=== PATIENT | male | born 1955 | race Caucasian/White ===

== ENCOUNTER → 2023-06-30 10:19 | Outpatient (REF) | payer MEDICARE, OTHER, SELFPAY | LOC: DHCBC MAIN 10:19 | PROVIDERS: ATTENDING PHYSICIAN Internal Medicine; FAMILY PHYSICIAN Family Medicine | DX: R60.0 Localized edema (principal) | CPT/HCPCS: 93306 ==

== ENCOUNTER → 2023-11-11 06:28 | Day surgery (SDC) | payer MEDICARE, OTHER, SELFPAY | LOC: GI 06:28 | PROVIDERS: ATTENDING PHYSICIAN Internal Medicine | DX: Z12.11 Encounter for screening for malignant neoplasm of colon (principal); D12.3 Benign neoplasm of transverse colon; D12.7 Benign neoplasm of rectosigmoid junction; K63.5 Polyp of colon; Z86.010 Personal history of colon polyps | CPT/HCPCS: 45385; 45380; 88305 ==

== ENCOUNTER 2024-10-21 08:39 | Emergency (ER) | payer MEDICARE, OTHER, SELFPAY ==
[2024-10-21 08:44] VITALS: BP 167/109
--- NOTE | 2024-10-21 09:17 | ED.GENMED ---
History of Present Illness
General
Chief Complaint: Cardiac Symptoms
Source: patient
Exam Limitations: none
Time Seen by Provider: 10/21/24 09:16
Nursing documentation reviewed up to this point in time: agreed with
History of Present Illness
History of Present Illness:
Patient is a 69-year-old male who presents the emergency department for evaluation of heart palpitations which began this morning. Patient states he woke up around 6 AM and felt that his heart was beating irregularly. He states at that time he had
some mild lightheadedness. He denies any shortness of breath, chest pain, dizziness or diaphoresis. However�by my assessment�patient states his symptoms have resolved.
Patient has remote history of atrial fibrillation and takes metoprolol 25 mg daily. He has not had any known episodes of A-fib since he was in his 40s.
In the past�patient is always spontaneously converted back to normal sinus rhythm. He has never been cardioverted.
He follows with Dr. Harden.
Review of Systems
Review of Systems
Allergies reviewed?: Yes
All Other Systems: ROS reviewed and negative except as documented in HPI and ROS
Phy Exam
Physical Exam
Physical Exam:
Vitals: Hypertensive, tachycardic. Afebrile
General: Patient is well appearing, no acute distress. Nontoxic appearing
Skin: Warm and dry, no rashes or lesions
Head: Normocephalic, atraumatic
Eyes: Sclera nonicteric.
Throat: Protecting airway
Neck: Normal ROM, no cervical spine tenderness, no meningismus. No JVD
Cardiac: Tachycardic, irregularly irregular rhythm, no murmurs.
Pulm: Normal respiratory effort, no wheezes, rales, rhonchi heard on exam
Abdomen: No abdominal tenderness.
Extremities: 1+ edema right lower extremity. 2+ palpable DP pulses bilaterally. Negative Homans' sign bilaterally
Neuro: AAOx3. Grossly intact.
Psychiatric: Normal affect.
Scores
[id number] Score for Afib Stroke Risk
Age in Years (65=0, 65-74=1, >/=75=2): 65-74
Sex (Female=+1): Male
Congestive Heart Failure History (Yes=+1): No
Hypertension History (Yes=+1): Yes
Stroke/TIA/Thromboembolism History (Yes=+2): No
Vascular Disease History (Yes=+1): No
Diabetes Mellitus (Yes=+1): No
Score: 2
Anticoagulation Recommendations: Recommend anticoagulation (as validated in nonvalvular fib)
Course
Orders/Labs/Results
Orders:
Orders
10/21/24 08:40
Electrocardiogram (*1) Urgent
Reason for Study: Palpitations
EKG- Treatment ONCE
10/21/24 09:26
Diltiazem HCl [Cardizem] 5 mg IV NOW STA
10/21/24 09:31
0.9% Sodium Chloride 500 ml [Nss] 500 ml IV BOLUS
10/21/24 09:47
Complete Blood Count/With Diff Urgent
Comprehensive Metabolic Panel Urgent
TSH Reflex To Free T4 Urgent
10/21/24 10:00
Diltiazem 125 mg/125 ml Nss [Cardizem] 125 mg in 125 ml IV PER PROTOCOL
Initial dose in mg/hr, then titrate:: 5
Titrate to keep:: Heart rate 80-100 bpm
Titrate by mg/hr:: 5 mg/hr
Frequency of titrations (minutes):: 15
Maximum dose in mg/hr:: 15
10/21/24 11:45
Apixaban [Eliquis] 5 mg .ROUTE .STK-MED ONE
10/21/24 11:47
Electrocardiogram (*1) Urgent
Reason for Study: Palpitations
EKG- Treatment ONCE
Apixaban [Eliquis] 5 mg PO NOW STA
10/21/24 11:49
EKG- Treatment ONCE
10/21/24 12:00
Apixaban [Eliquis] 5 mg PO BID
Abnormal Lab Results
10/21/24
09:47
Absolute Lymphs (auto) 1.0 L 10^3/uL
(1.2-3.4)
Absolute Monos (auto) 0.7 H 10^3/uL
(0.1-0.6)
Lymphocytes % 16.2 L %
(20.5-51.1)
Monocytes % 11.8 H %
(1.7-9.3)
Glucose 102 H mg/dl
(70-99)
10/21/24 09:47
10/21/24 09:47
Vital Signs
Initial and Last Documented VS:
Initial Vital Signs
Temp Pulse Resp BP Pulse Ox
97.8 F 83 16 167/109 98
10/21/24 08:44 10/21/24 08:44 10/21/24 08:44 10/21/24 08:44 10/21/24 08:44
Last Documented Vital Signs
Temp Pulse Resp BP Pulse Ox
97.8 F 61 15 148/84 94
10/21/24 08:44 10/21/24 11:15 10/21/24 11:15 10/21/24 10:27 10/21/24 11:15
MDM/Problems Addressed
Differential Diagnosis Includes:
Not limited to: Cardiac arrhythmia, acute dehydration, viral illness, electrolyte abnormality,
MDM/Problems Addressed:
69-year-old male with remote history of A-fib presenting with heart palpitations and mild lightheadedness this morning, found to be in atrial fibrillation on arrival to ED. Symptoms essentially resolved by my evaluation. He denies chest pain.
Patient hypertensive on arrival, otherwise stable vital signs. Physical exam as above. Patient well-appearing, in no apparent distress. During examination patient appears in atrial fibrillation with rate ranging from upper 80s to low 100s. Lungs
clear. Otherwise exam unremarkable.
Patient is asymptomatic at this time however remains in atrial fibrillation. Patient believes symptoms started around 6 AM this morning however given he is asymptomatic now it is unsure if he would have realized the initial onset of A-fib. He is
not currently anticoagulated and there would be concern for cardioembolic event if cardioverted today. Will attempt rate/rhythm control with Cardizem bolus. Will discuss with cardiology.
Update: Rate has remained controlled in 80s/90s however he remains in A-fib. He is asymptomatic. Will start Cardizem drip. After discussion with cardiology�given he is asymptomatic and rate controlled�no indication for emergent PARVEEN/cardioversion
today. Will continue to attempt conversion with Cardizem and plan for outpatient cardiology follow-up. Labs without acute findings.
Update: Patient did convert to normal sinus rhythm while in emergency department. EKG obtained which confirms sinus rhythm at 60 bpm. Patient remains asymptomatic. Discussed with cardiology�plan will be to start Eliquis and increase metoprolol to
50 mg. He will follow-up with cardiology outpatient. Patient given initial dose of Eliquis in emergency department and prescription sent for remainder of prescription. Very strict return precautions discussed. Patient and patient's
comfortable with plan.
Chronic conditions affecting care:
Atrial fibrillation
Acute Exacerbation and/or Progression of Chronic Illness:
paroxysmal atrial fibrillation
*Pulse Oximetry
SaO2: 98
Oxygen Mode of Delivery: Room air
Patient hypoxic: no
*EKG
Interpreted by ED Provider?: Yes
EKG Intrepretation Date: 10/21/24
Interpretation: abnormal
Comparison EKG: changes noted
Heart Rate: 106
Rate: tachycardiac
Rhythm: a-fib
[place]: normal axis
Interval: normal QT interval
QRS Pattern: normal QRS
Ischemia: no ischemia
*Ins[employer] Interpretation
Rate: normal
Interpretation: abnormal
Heart Rate: 94
Rhythm: a-fib
*Critical Care Note
Total Time (30-74mins, 75-104mins- exclusive of procedures): Not Applicable
Patient Management
Discussion with other providers: Payroll Representative (Case discussed with cardiology)
ED Attending Note
-
Portions of this chart may have been created with voice recognition software.� Occasional wrong word or��sound alike� substitutions may have occurred due to the inherent limitations of voice recognition software.
Discharge Plan
Departure
Patient Disposition: Home (Routine Discharge)
Date of Disposition: 10/21/24
Time of Disposition: 11:33
Patient with high blood pressure during this ER visit?: Yes
Discharge Problem:
Paroxysmal atrial fibrillation
Instructions: How to take anticoagulants safely, Atrial fibrillation - Discharge instructions, BLOOD PRESSURE
Prescriptions:
New
metoprolol succinate 50 mg tablet extended release 24 hr
50 mg PO DAILY Qty: 30 0RF
Eliquis 5 mg tablet
5 mg PO BID Qty: 60 0RF
No Action
red yeast rice 600 MG tablet
600 mg PO DAILY
Vitamin D
1,000 units PO DAILY
sulfamethoxazole-trimethoprim 1 TABLET tablet
1 tab PO DAILY Qty: 12 0RF
naproxen 500 MG tablet,delayed release (DR/EC)
500 mg PO BIDPRN PRN (Reason: pain) Qty: 60 0RF
hydrocodone-acetaminophen [Vicodin] 1 EACH tablet
1 ea PO Q4HPRN PRN (Reason: severe pain) Qty: 30 0RF
Referrals:
Harvey Harden MD [Active, Cardiology] - Next open appointment
UNKNOWN - PT NOT,INTERVIEWE [Unknown Provider]
Activity Restrictions/Additional Instructions:
RETURN TO THE EMERGENCY DEPARTMENT WITH ANY PERSISTENTLY ELEVATED HEART RATE, CHEST PAIN, SHORTNESS OF BREATH/DIFFICULTY BREATHING, LIGHTHEADEDNESS OR DIZZINESS, ANY TRAUMATIC INJURY OR BLEEDING AT HOME, OR ANY OTHER CONCERNS
- As discussed�your heart rhythm converted to normal sinus rhythm while in the emergency department.
- As discussed with cardiology�we will increase your metoprolol to 50 mg once a day and start a blood thinner, Eliquis -this should be taken twice a day. Please monitor your heart rate at home.
- Now that you are on a blood thinner�please be very cautious with any trauma or head injury and return to the emergency department. You should avoid NSAIDs including Motrin, Aleve, Advil, naproxen, etc. Take Tylenol as needed for pain.
- Follow-up with cardiology for further evaluation/management to ensure that symptoms are improving
Monitor your symptoms closely and return to the emergency department with any acute worsening/new symptoms or any other concerns
Interventions
Interventions:
*Risk Screen - Suicide Last Done: 10/21/24 08:44
*General Assessment Last Done: 10/21/24 11:40
*Neglect/Abuse Screening Last Done: 10/21/24 08:44
*ED- Fall Risk Assessment Last Done: 10/21/24 11:40
*Nursing Disposition Last Done: 10/21/24 11:40
ED- Pulmonary Assessment Last Done: 10/21/24 10:00
ED- Cardiac Assessment Last Done: 10/21/24 10:00
Discharge Date and Time
Discharge Date/Time: 10/21/24 11:46
Print Language: [place]
[2024-10-21 09:24] VITALS: BP 152/119
[2024-10-21] MEDS: NSS 500 IV (09:43)
[2024-10-21] MEDS: CARDIZEM 5 MG IV (09:43)
[2024-10-21 09:57] LABS: Hematocrit 45.2 % (39.0-52.0); Hemoglobin 15.2 g/dL (13.0-18.0); Mean Corp Hgb Conc. 33.6 g/dL (33.0-37.0); Mean Corpuscular Volume 83.7 fL (80.0-94.0); Nucleated Red Blood Cells % 0 % (-); Platelet Count 221 10^3/uL (130-400); Red Cell Dist. Width 14.5 % (11.5-14.5)
[2024-10-21 10:18] LABS: ALT (SGPT) 43 U/L (0-50); AST (SGOT) 31 U/L (17-59); Albumin 4.3 g/dl (3.5-5.0); Alkaline Phosphatase 86 U/L (38-126); Blood Urea Nitrogen 18 mg/dl (9-20); Calcium 9.0 mg/dl (8.4-10.2); Carbon Dioxide 30 mmol/L (22-30); Chloride 105 mmol/L (98-107); Glucose 102 mg/dl (70-99); Potassium 4.3 mmol/L (3.5-5.1); Sodium 140 mmol/L (135-145); Total Protein 6.8 g/dl (6.3-8.2); eGFR > 60.00
[2024-10-21] MEDS: CARDIZEM 125 IV (10:18)
[2024-10-21 10:27] VITALS: BP 148/84
[2024-10-21] MEDS: ELIQUIS 5 MG PO (11:46)
== END 2024-10-21 11:46 | disposition home or self-care (01) ==
LOC: EMR 08:39
PROVIDERS: Physician Assistant; EMERGENCY PHYSICIAN Emergency Medicine; FAMILY PHYSICIAN Family Medicine
DX: I48.0 Paroxysmal atrial fibrillation (principal); I10 Essential (primary) hypertension
CPT/HCPCS: 99283; 96374; 96361; 80053; 84443; 85025; 93005

== ENCOUNTER → 2024-11-16 08:42 | Outpatient (REF) | payer MEDICARE, OTHER, SELFPAY | LOC: RCS 08:42 | PROVIDERS: ATTENDING PHYSICIAN Nurse Practitioner; FAMILY PHYSICIAN Family Medicine | DX: I48.0 Paroxysmal atrial fibrillation (principal); I10 Essential (primary) hypertension; G47.33 Obstructive sleep apnea (adult) (pediatric) | CPT/HCPCS: 93306 ==